=== PATIENT | male | born 1965 | race Caucasian/White ===

== ENCOUNTER 2024-01-19 13:56 | Emergency (ER) | payer SELFPAY ==
[2024-01-19 14:10] VITALS: RESP 18
--- NOTE | 2024-01-19 14:56 | XR ---
EXAMINATION TYPE: XR hand complete RT DATE OF EXAM: 01/19/2024 CLINICAL HISTORY: pain TECHNIQUE: Frontal, lateral and oblique images of the right hand are obtained. COMPARISON: None. FINDINGS: There is no acute fracture/dislocation evident. The joint spaces appear within normal limi ts. The overlying soft tissue appears unremarkable. IMPRESSION: There is no acute fracture or dislocation ICD 10 NO FRACTURE, INITIAL EVALUATION
--- NOTE | 2024-01-19 15:16 | ED ---
Upper Extremity HPI - General Chief Complaint: Extremity Injury, Upper Stated Complaint: hand swelling Time Seen by Provider: 01/19/24 14:10 Source: patient, RN notes reviewed Mode of arrival: ambulatory Limitations: no limitations - History of Present Illness Initial Comments: This is a 58-year-old male presents emergency department chief complaint of pain to his right thumb. Patient states that this pain has been present for the past few weeks and is worsening. He denies any known injury or trauma to the thumb. Denies loss of motor function, paresthesias. Pain is most severe when flexing the thumb. He has been taking Advil at home with minimal relief. Denies symptoms of fevers, chills, nausea, vomiting. Denies wrist or elbow pain. No other acute complaints at this time. - Related Data Allergies Allergy/AdvReac Type Severity Reaction Status Date / Time Penicillins Allergy Unknown Verified 01/19/24 14:10 Childhood Review of Systems ROS Statement: Those systems with pertinent positive or pertinent negative responses have been documented in the HPI. ROS Other: All systems not noted in ROS Statement are negative. Past Medical History Past Medical History: No Reported History History of Any Multi-Drug Resistant Organisms: None Reported Past Surgical History: No Surgical Hx Reported Additional Past Surgical History / Comment(s): Skin cyst removed Past Psychological History: PTSD Smoking Status: Never smoker Past Alcohol Use History: None Reported Past Drug Use History: Marijuana General Exam Limitations: no limitations General appearance: alert, in no apparent distress Head exam: Present: atraumatic, normocephalic, normal inspection Eye exam: Present: normal appearance, PERRL, EOMI. Absent: scleral icterus, conjunctival injection, periorbital swelling ENT exam: Present: normal exam, mucous membranes moist Neck exam: Present: normal inspection. Absent: tenderness, meningismus, lymphadenopathy Respiratory exam: Present: normal lung sounds bilaterally. Absent: respiratory distress, wheezes, rales, rhonchi, stridor Cardiovascular Exam: Present: regular rate, normal rhythm, normal heart sounds. Absent: systolic murmur, diastolic murmur, rubs, gallop, clicks GI/Abdominal exam: Present: soft, normal bowel sounds. Absent: distended, tenderness, guarding, rebound, rigid Right Hand Wrist exam: Present: normal inspection, full ROM, tenderness (thumb pain with flexion over the anterior thumb) Neuro motor exam: Present: wrist extension intact, thumb opposition intact, thumb IP flexion intact, thumb adduction intact, fingers 2-5 abduction intact Vascular: Present: normal capillary refill. Absent: vascular compromise Back exam: Present: normal inspection Neurological exam: Present: alert, oriented X3, CN II-XII intact Psychiatric exam: Present: normal affect, normal mood Skin exam: Present: warm, dry, intact, normal color. Absent: rash Course Vital Signs 01/19/24 01/19/24 14:06 15:52 Temperature 97.7 F 97.8 F Pulse Rate 71 63 Respiratory 18 18 Rate Blood Pressure 116/81 106/69 O2 Sat by Pulse 99 95 Oximetry Medical Decision Making - Medical Decision Making Was pt. sent in by a medical professional or institution (, PA, HAIR CUTTER, urgent care, hospital, or usp...) When possible be specific @ -No Did you speak to anyone other than the patient for history (EMS, parent, family, police, friend...)? What history was obtained from this source @ -No Did you review nursing and triage notes (agree or disagree)? Why? @ -I reviewed and agree with nursing and triage notes Were old charts reviewed (outside hosp., previous admission, EMS record, old EKG, old radiological studies, urgent care reports/EKG's, usp records)? Report findings @ -No old charts were reviewed Differential Diagnosis (chest pain, altered mental status, abdominal pain women, abdominal pain men, vaginal bleeding, weakness, fever, dyspnea, syncope, headache, dizziness, GI bleed, back pain, seizure, CVA, palpatations, mental health, musculoskeletal)? @ -Differential Musculoskeletal Muscular strain, contusion, ligament sprain, fracture, arthritis, septic arthritis, bursitis, cellulitis, muscle spasm, nerve compression, DVT, arterial occlusion, herpes zoster, electrolyte abnormality, tumor.... This is not meant to be in all inclusive list EKG interpreted by me (3pts min.). @ -None X-rays interpreted by me (1pt min.). @ -X-ray of the right hand no acute bony abnormalities or process noted. CT interpreted by me (1pt min.). @ -None done U/S interpreted by me (1pt. min.). @ -None done What testing was considered but not performed or refused? (CT, X-rays, U/S, labs)? Why? @ -None What meds were considered but not given or refused? Why? @ -Adderall was offered to the patient but he deferred at this time states that he will take anti-inflammatories at home. Did you discuss the management of the patient with other professionals (reese meyer i.e. , PA, HAIR CUTTER, lab, RT, psych nurse, family welfare social work professor, public relations player, teacher, armor officer, director case management)? Give summary @ -No Was smoking cessation discussed for >3mins.? @ -No Was critical care preformed (if so, how long)? @ -No Were there social determinants of health that impacted care today? How? (Homelessness, low income, unemployed, alcoholism, drug addiction, transportation, low edu. Level, literacy, decrease access to med. care, intermediate, rehab)? @ -No Was there de-escalation of care discussed even if they declined (Discuss DNR or withdrawal of care, Hospice)? DNR status @ -No What co-morbidities impacted this encounter? (DM, HTN, Smoking, COPD, CAD, Cancer, CVA, ARF, Chemo, Hep., AIDS, mental health diagnosis, sleep apnea, morbid obesity)? @ -None Was patient admitted / discharged? Hospital course, mention meds given and route, prescriptions, significant lab abnormalities, going to OR and other pertinent info. @ -discharge. 58-year-old male with some pain. On examination there are no neurovascular deficits noted. Thumb is not in flexion, has no anatomical snuffbox tenderness or pain of the wrist. X-ray negative for acute process. Patient's pains are likely secondary to a tendinitis of the flexor of the thumb. Patient is provided with a splint and instructed to continue supportive treatment at home. Use splint during the day to minimize overuse of the thumb. Recommend that patient follows up with his primary care provider for further evaluation. All questions answered at bedside and strict return parameters ping with the patient he is verbalized understanding. Case discussed with Dr. Beaver Undiagnosed new problem with uncertain prognosis? @ -No Drug Therapy requiring intensive monitoring for toxicity (Heparin, Nitro, Insulin, Cardizem)? @ -No Were any procedures done? @ -No Diagnosis/symptom? @ -tendonitis of thumb Acute, or Chronic, or Acute on Chronic? @ -acute Uncomplicated (without systemic symptoms) or Complicated (systemic symptoms)? @ -uncomplicated Side effects of treatment? @ -No Exacerbation, Progression, or Severe Exacerbation? @ -No Poses a threat to life or bodily function? How? (Chest pain, [place], [place], pneumonia, PE, COPD, DKA, ARF, appy, cholecystitis, CVA, Diverticulitis, Homicidal, Suicidal, threat to staff... and all critical care pts) @ -No Disposition Clinical Impression: Pain of right thumb, Thumb tendonitis Disposition: HOME SELF-CARE Condition: Good Instructions (If sedation given, give patient instructions): Skier's Thumb (ED) Additional Instructions: Wear splint during the day over the next few days. Continue symptomatic treatment at home with Tylenol and Motrin. Recommend follow-up with your primary care provider in a week for further evaluation. Return to the emergency department for any new or worsening symptoms. Is patient prescribed a controlled substance at d/c from ED?: No Referrals: None,Stated [Primary Care Provider] - 1-2 days Time of Disposition: 15:16
[2024-01-19 15:53] VITALS: BP 106/69; PULSE 63; TEMP 97.8
== END 2024-01-19 15:53 | disposition home or self-care (01) ==
LOC: EC 13:56
DX: M77.8 Other enthesopathies, not elsewhere classified (principal); Z88.0 Allergy status to penicillin
CPT/HCPCS: 99283